=== PATIENT | male | born 1985 | race Caucasian/White ===

== ENCOUNTER → 2020-12-10 | Outpatient (CLI) | payer OTHER ==
[2020-12-10 15:35] LABS: PLATELET COUNT, AUTOMATED 306 10^3/uL (150-450)
[2020-12-10 15:37] LABS: INR 0.99; PROTHROMBIN TIME 13.4 SECONDS (12.7-14.5)
[2020-12-10 15:38] LABS: PARTIAL THROMBOPLASTIN TIME 34.1 SECONDS (25.9-37.0)
== END ==
LOC: M PLALAB 14:01
PROVIDERS: ATTEND Physical Medicine & Rehabilitation
DX: M43.16 Spondylolisthesis, lumbar region (principal)

== ENCOUNTER → 2022-02-17 | Outpatient (CLI) | payer OTHER ==
[2022-02-17 13:42] LABS: PLATELET COUNT, AUTOMATED 292 10^3/uL (150-450)
[2022-02-17 13:55] LABS: INR 0.91; PROTHROMBIN TIME 12.5 SECONDS (12.5-14.5)
[2022-02-17 13:56] LABS: PARTIAL THROMBOPLASTIN TIME 28.6 SECONDS (24.8-34.2)
[2022-02-17 14:02] LABS: COLLAGEN EPINEPHRINE 110 SECONDS (74-162)
== END ==
LOC: M LAB 12:57
PROVIDERS: ATTEND Physician Assistant
DX: M47.26 Other spondylosis with radiculopathy, lumbar region (principal)